=== PATIENT | male | born 1975 | race Two or more races ===

== ENCOUNTER 2018-08-23 06:15 | Inpatient (IN) | payer MEDICAID ==
[~2018-08-23] VITALS: Ht 172.7 cm; Wt 80.9 kg
[2018-08-23 06:22] VITALS: Ht 172.7 cm; Wt 80.9 kg
--- NOTE | 2018-08-23 06:34 | NUR ---
PT PRESENTS TO ED BIB AMBULANCE WITH C/O ABDOMINAL PAIN AND THROAT PAIN. PT STS THROAT AND ABDOMINAL PAIN OCCURRED YESTERDAY S/P PT HAD FAILED ATTEMPT AT PERITONEAL DIALYSIS CATHETER INSERTION AND WAS EXTUBATED. PER PT PROCEDURE OCCURED AT [facility]. PT BELIEVES PAIN WAS CAUSED BY THE PROCEDURES YESTERDAY. PT DENIES FEVER, N/V/D, OR SOB. PT HAS OLD SURGICAL SCARS ON ABDOMEN FROM APPENDECTOMY AND COMPLICATIONS FROM APPENDICITIS. PT SITTING UP ON GURNEY, RESP E/U, ON MONITOR, NO ACUTE DISTRESS NOTED AT THIS TIME.
--- NOTE | 2018-08-23 07:10 | NUR ---
REPORT RECEIVED FROM Herbie VAIL
[2018-08-23 07:19] LABS: ALBUMIN 3.6 g/dL (3.4-5.0); BILIRUBIN TOTAL 0.4 mg/dL (0.20-1.00); CARBON DIOXIDE 18.3 mmol/L (21-32); POTASSIUM SERUM 3.6 mmol/L (3.5-5.1); TOTAL PROTEIN, SERUM 7.6 g/dL (6.4-8.2)
[2018-08-23 07:24] LABS: CREATININE SERUM 18.1 mg/dL (0.7-1.3)
[2018-08-23 07:26] LABS: BASOPHIL % 0.7 % (0-2); PLATELET COUNT 150 x10^3mcL (130-400)
[2018-08-23 07:29] LABS: RED CELL DISTRIBUTION WIDTH 21.3 % (11.5-14.5)
--- NOTE | 2018-08-23 07:30 | NUR ---
PT SITTING UPRIGHT ON GURNEY. NAD NOTED. FAMILY AT BEDSIDE. REMAINS ON FULL MONITORS.
[2018-08-23 08:14] LABS: rbc morphology (normal/abnorm) ABNORMAL (NORMAL)
--- NOTE | 2018-08-23 09:08 | NUR ---
PT REPORTS DISCOMFORT TO NOSE AND THROAT AREA. DR LOU INFORMED OF SAME. NO NEW ORDERS AT THIS TIME
--- NOTE | 2018-08-23 09:15 | NUR ---
PT INFORMED OF ADMISSION BY ADMITTING MEDICAL TEAM AND RIZWAN AGUILAR
[2018-08-23] MEDS ORDERED: AMLODIPINE BES2.5 M1 (09:58)
--- NOTE | 2018-08-23 09:58 | NUR ---
REPORT GIVEN TO GREGORY
[2018-08-23 10:01] LABS: MAGNESIUM 2.5 mg/dL (1.8-2.4)
[2018-08-23 10:09] LABS: FREE T4 1.09 ng/dL (0.76-1.46); FREE THYROXINE INDEX 3.1 ug/dL (1.4-4.5); T4(THYROXINE) 8.9 ug/dL (4.7-13.3)
[2018-08-23 10:24] LABS: PHOSPHOROUS 9.5 mg/dL (2.5-4.9)
[2018-08-23 10:47] LABS: T3 TOTAL 0.98 ng/mL
--- NOTE | 2018-08-23 11:02 | NUR ---
RECEIVED PATIENT ALERT AND ORIENTED TIMES FOUR. PATIENT SEEN IN THE EMERGENCY ROOM FOR PAIN TO THE THROAT AND THE ABDOMEN. JOANN HAS RECENT SURGERY AT [facility] AND WAS ATTEMPTED DIALYSIS PORT PLACEMENT. THE PATIENT THOUGH HAD TOO MUCH SCAR TISSUE TO THE ABDOME FORM A PREVIOUS SUIRGERY FOR APPENDICITIS 20 YEARS AGO AND HAD AT THAT TIME AND OPEN LAP AND APPEAR HE HAS RETENTION SUTURES AND A LARGE INCISION AT THAT TIME. PATIENT IS FROM [facility] AND HAS BEEN OORKING IN AND PACKING AND DELIVERY SHOP AND HAD NOT BEEN WORKING FOR TWO MONTHS DUE TO THE RENAL FAILURE. PATIENT IS FOR A SHUNT TO THE ARM AT SOME POINT DU ETO THE INABILITY TO GET A PERITONEAL ACCESS. PATIENT AHS NOTE DLABS OF THE BUN AT 119.0/ CREATININE AT 18.1. ALSO NOTED THE BULL TAHS A H AND H OF 6.7/19. JOANN THALino HAS NOTED GALLSTONES PRESNET AND A LEFT WITH CORTICAL CYST. PATIENT ALSO HAS A LINEAR ATELECTASIS AT THE LUNG BASES. BULL TSTATES EH DOES NOT HAVE DIABETES BUT HTN WHICKH BROUGHT ON THE KIDNEY FAILURE. THE MOTHER HAS DM AND HTN. FATHER IS APPARENTLY HEALTHY. PATIENT HAS LOST WEIGHT AND HAS NOT BEE ABLE TO EAT MUCH AND LAST BM WAS ON SUNDAY. PATEINT HAS STILL BEEN ABLE TO URINATE BUT NOT MUCH. NO ACUTE EDEMA NOTED AND PATIENT HAS TRACE TO NONE AT THIS TIME TO THE LOWER EXTREMITES. VITALS ARE AT 97.1, 88, 20, 142/89, 97% IN THE ER AND AT 162/93, 18, 97%, 118 MAP AND 98.5 HER ON THE FLOOR. BULL TDOES NOT WANT VACINATION AND HAD SOME COLLEGE IN HIS COUN[place] OF TWO YEARS AND HAS BEEN WITH NO KNOWN ALLERGIES AND HAS WOUNDS TO THE ABODME FROM THE ATTEMPTED SURGERY PLACEMENT OF THE DIALYSIS PROT. TO THE RIGHT SIDE OF THE LATERAL LOWER ABDOMEN.
[2018-08-23 11:14] VITALS: BP 162/93
--- NOTE | 2018-08-23 13:15 | NUR ---
STARTED OM THE CONTRAST ORDERED AND NOW HAVING A ULTRASOUND OF THE ABODMEN. PATIENT HAS BEEN GIVEN PAIN MEDICAITON FOR PAIN TO THE ABDOMEN AND THROAT. WILL CONTINUE TO MONITOR .
--- NOTE | 2018-08-23 14:48 | NUR ---
DOWN FOR CT AT THIS TIME. PATIENT IS CALM AND THE MORPHIEN GIVEN WAS EFFECTIVE.
--- NOTE | 2018-08-23 14:57 | NUR ---
BACK FROM THE CT AND RESULTS PENDING. NEW ORDER FOR DIALYSIS CATH TO BE PLACED AND SUBSIQUENT ORDERS FOR DIALYSIS INDICATED. PATIENT REFUSED PAIN MEDICAITON WHEN OFFERED. WILL CONITNUE TO MONITOR.
--- NOTE | 2018-08-23 15:39 | NUR ---
TELE NEURO CONSULT INITIATED AT THIS TIME. SOC COMPUTER PLACED IN THE ROOM. ATTENDING NURSE GREGORY PUGA.
[2018-08-23 17:10] VITALS: BP 157/94
--- NOTE | 2018-08-23 17:30 | NUR ---
BLOOD IS READY AND RETREAVED BUT PATIEN TIS HAVING CATA PLACED AT THIS TIME. PATIENT HAS BEEN GIVEN ATIVAN 1 MG IVP AND IS TOLERATING FAIR. SEVERAL ATTTEMPT AND CATA WAS PLACED DALTON ERIGHT JUGULAR. SECURED AND CHEST XRAY PENDING. STARTED THE BLOOD AND RUNNING AT 150 AT THIS TIME. WILL ENDORSE TO THE NEXT SHIFT INDICATED. CONSENT PRINTED FOR HEMODIALYSIS AND SPOKE WIHT ALFARO ABOUT POSSIBLY DOING TONIGHT RECEIVED CALL FROM RADIOLOGY AND THE HIDA SCAN WILL NOT BE DONE TILL TOMORROW AND WILL ADVISE THE APPLICATION DEVELOPMENT SPECIALIST INDICATED.
--- NOTE | 2018-08-23 19:33 | NUR ---
BLOOD INFUSING A ARTURO WAS PLACED AND X RAY OF THE CHEST TAKEN. AWAITING RESULTS. PATIENT SLEEPY FROM THE ATIVAN AND COMPLAINS OF NASAL DRYNESS. APPLIED SOME KWY TO THE NARES AND ENDORSED TO THE ON COMING SHIFT.
--- NOTE | 2018-08-23 19:45 | NUR ---
PT RECIEVED FROM THE DAY SHIFT RN. PT IS DROWSY AND ALERT TO TOUCH AND VERBAL STIMULUS. PT HAS GARBLED SPEECH AT THIS TIME. PT IS INFUSING BLOOD AT THIS TIME. PT MOTHER IS AT THE BEDSIDE. RT MEL CATH WAS PLACED XRAY OF CHEST FOR PLACEMENT WAS TAKEN. AWAITING RESULTS AT THIS TIME.
[2018-08-23] MEDS ORDERED: HYT1 PO (19:50)
[2018-08-23] MEDS ORDERED: ALLOPURINOL100 MG PO (19:51)
[2018-08-23] MEDS ORDERED: NOR10 PO (19:51)
[2018-08-23] MEDS ORDERED: FERROUS SULFAT325 M2 PO (19:51)
--- NOTE | 2018-08-23 19:52 | NUR ---
MEDICATION LIST OPTAINED AND PLACED IN THE RECONSILITION PORTION OF THE CHART. ENDORSED THE MEDICATION TO THE FARM SUPERVISOR INDICATED.
[2018-08-23 20:35] VITALS: BP 138/88
--- NOTE | 2018-08-23 20:35 | NUR ---
PT BLOOD INFUSION COMPLETE. NO ADVERSE REACTIONS NOTED. NO SOB . NO CHEST PAIN. NO ELEVATED HR. BREATHING IS EQUAL AND UNLABORED. VITALS SIGNS ARE TEMP 99.2, HR 98, BP 138/88, RESP 18, SPO2 95%.
--- NOTE | 2018-08-23 21:16 | NUR ---
DIALYSIS NURSE IN THE ROOM AT THIS TIME. PER DIALYSIS NURSE REQUEST WILL HOLD FLAGYL UNTIL PATIENT HAS COMPLETED DIALYSIS. WILL HOLD ZOSYN WELL. WILL CONTINUE TO MONITOR AT THIS TIME.
[2018-08-23 21:27] VITALS: BP 147/87
--- NOTE | 2018-08-24 02:41 | NUR ---
PT IS RESTING IN BED WITH EYES CLOSED AT THIS TIME. NO ACUTE DISTRESS NOTED. NO SOB NOTED. MOTHER IS AT THE BEDSIDE. IV IS INFUSING AND IS INTACT. SAFETY AND COMFORT MEASURES MAINTAINED, BED IN LOWEST POSITION, CALL LIGHT WITHIN REACH. WILL CONTINUE TO MONITOR AT THIS TIME.
--- NOTE | 2018-08-24 05:30 | NUR ---
PT HAS SLEPT IN INTERMITTENT INTERVALS THROUGHOUT THE SHIFT. PT HAD HEMODIALYSIS 0 OUTPUT CLEAN ONLY. PT HAS FLAGYL AND ZOSYN INFUSING DURING THE SHIFT. NO ACUTE DISTRESS NOTED. PT IV IS INTACT AND INFUSING WELL. MOTHER IS AT THE BEDSIDE. HEMODIALYSIS SCHEDULED FOR THE AM SHIFT PENDING LABS. SAFETY AND COMFORT MEASURES MAINTAINED, BED IN LOWEST POSITION, CALL LIGHT WITHIN REACH. WILL ENDORSE CONTINUITY OF CARE TO THE ONCOMING RN.
[2018-08-24 06:14] VITALS: BP 146/93
[2018-08-24 07:03] LABS: BASOPHIL % 0.3 % (0-2); PLATELET COUNT 132 x10^3mcL (130-400)
[2018-08-24 07:07] LABS: CALCIUM 8.2 mg/dL (8.5-10.1); CARBON DIOXIDE 25.4 mmol/L (21-32); POTASSIUM SERUM 3.2 mmol/L (3.5-5.1)
[2018-08-24 07:08] LABS: CREATININE SERUM 11.1 mg/dL (0.7-1.3)
[2018-08-24 07:12] LABS: RED CELL DISTRIBUTION WIDTH 20.5 % (11.5-14.5)
[2018-08-24 07:55] LABS: rbc morphology (normal/abnorm) ABNORMAL (NORMAL)
--- NOTE | 2018-08-24 08:53 | NUR ---
PATIENT RECEIVED ALERT AND ORIENTED TIMES FOUR. PATIENT HAS BEEN DIALYSED LAST NIGHT AND DUE AGAIN FOR TODAY. PATIENT HAS A HIDA ORDERED BUT HAS NOT HAD YET AND WITH THE DIALYSIS WILL NEED TO FIGURE OUT WHEN THIS WILL BE SCHEDULED AROUND THE OTHER NEEDS OF DIALYSIS AND NOW BLOOD TRANSFUSION. PATIENT WITH DIMINISHED BREATH SOUNDS AND BOWEL SOUNDS HYPOACTIVE. PATIENT HAS DISTENDED ABDOMEN AND NOTED PREVIOUS ATTEMPT FOR DIALYSIS PERITONEAL ACCESS. PATIENT HAS BEEN OOB AND TOLERATED WELL IV INTACT AND THE CATA TO THE RIGHT NECK/CLAVICAL AREA INTACT. PATIENT HAS BEEN WITHOUT COMPLAINTS OF PAIN AT THIS TIME. SOME MILD TRACE EDEMA NOTED TO THE LOWER EXTREMITES. LABS ARE NOTED TO HAVE THE H AND H OF 7.4 AND 24 NOTED. PATIENT HAS BUN AND CREATININE AT 55.0/11. PATIENT HAS BEEN LETHARGIC POST THE ATIVAN LAST NIGHT BUT APPEARS ALERT THIS AM. WILL CONTINUE TO MONITOR INDICATED. MOTHER AT BEDSIDE AND WANTS TO GIVE THE PATIENT BP MEDICATION BUT REMINDED THAT THE PATIENT IS TO TAKE THE MEDICATION OFFERED HERE AT THE HOSPITAL NOW SO THE OTHER MEDICATIONS ARE ON HOLD FOR PHYSICIAN REVIEW TO SEE IF STILL APPROPRIATE. STAFF INTERPRETED FOR THE FAMILY AND PATIENT ON THE NEED FOR COMPLIANCE WITH THIS AND WILL CONTINUE TO EDUCATE AND UPDATE NEEDED. VITALS AT THIS TIME AT 146/93, 97, 97.4, 96%, 20.
[2018-08-24 09:56] VITALS: BP 141/89
--- NOTE | 2018-08-24 10:56 | NUR ---
SEVERAL CALLS BACK AND FORTH TO ARRANGE THE HIDA AND DIALYSIS SO THEY DO NOT INTERFER WITH EACH OTHER. THE TECH ADVISED THAT SHE CAN NOT GUARENTEED TO HAVE THE HIDA DONE IN LESS THAN FOUR HOURS AND THE SCAN SHE IS WORKING ON NOW AT ANOTHER HOSPITAL THE SAME THING. ADVISED THE CHEMICAL PREPARER THAT THE SCAN WILL BE DONE IN THE AM. SPOKE WITH MACO THE TECH AND SHE WILL BE HERE ABOUT 830AM AND NOT TO HAVE FOOD AND KEEP NPO AFTER MIDNIGHT AND TO NOT HAVE ANY NARCOTICS POST 4AM FOR THE TEST. BLOOD IS READY NOW AND WILL GIVE THE DIALYSIS NURSE WILL NOT BE DOING THE DIALYSIS TILL LATER TODAY.
--- NOTE | 2018-08-24 11:43 | NUR ---
STARTED THE UNIT OF BLOOD ORDERED. PATIENT IS SLEEPING AND HAD JUST HAD THE ECHO DONE. FAMILY AT BEDSIDE AND SUPPORTIVE WITH CARE.
[2018-08-24 12:53] VITALS: BP 138/91
--- NOTE | 2018-08-24 14:26 | NUR ---
CALLED THE MANAGER TECHNICAL SERVICES FOR ORDER FOR DIET BUT THE MANAGER TECHNICAL SERVICES DOES NOT WANT THE PATIENT TO HAVE FOOD. BLOOD INFUSED AND TOLERATED WELL THE LAST BP AT 98.8, 96, 164/93, 18, 96%. FAMILY AT BEDSIDE AND SUPPORTIVE WITH CARE. NO COMPLAINTS OF PAIN AT THIS TIME.
[2018-08-24 15:18] LABS: IRON 70 ug/dL (65-170)
[2018-08-24 15:42] LABS: TOTAL IRON BINDING CAPACITY 238 ug/dL (250-450)
[2018-08-24 17:17] VITALS: BP 137/90
--- NOTE | 2018-08-24 17:22 | NUR ---
INFORMED BY THE DIALYSIS NURSE NEED MEDICATION FOR THE DIALYSIS OF MANITOL ORDERED AND WILL GIVE TO THE NURSE TO GIVE INDICATED.
--- NOTE | 2018-08-24 19:06 | NUR ---
PATIENT VOMITING BILE COLORED LIQUID. GAVE ZOFRAN ORDERED. WILL CONTINUE TO MONITOR. UNABLE TO GIVE THE DOSING OF ZOSYN AND HAD GIVEN THE FLAGYL FIRST AND THE ZOSYN TO FOLLOW. DIALYSIS NOW STARTED AND WILL NEED TO HOLD TILL POST THE DIALYSIS.
--- NOTE | 2018-08-24 19:15 | NUR ---
PT RECIEVED FROM THE DAY SHIFT RN, PT IS CURRENTLY AWAKE AND ALERT AND UNDERGOING HEMODIALYSIS AT THIS TIME. MOTHER IS AT THE BEDSIDE. NO ACUTE DISTRESS NOTED, SAFETY AND COMFORT MEASURES MAINTAINED, BED IN LOWEST POSITION, CALL LIGHT WITHIN REACH. WILL CONTINUE TO MONITOR AT THIS TIME.
[2018-08-24 22:24] VITALS: BP 162/96
--- NOTE | 2018-08-24 23:40 | NUR ---
FLAGYL INFUSING AT THIS TIME. MOTHER IS AT THE BEDSIDE, PT IS SNORING AT THIS MOMENT AND NOTICED SHORT BURSTS OF APNEA. HOB ELEVATED TO 45 DEGREES. PT EASILY AROUSABLE. NO ACUTE DISTRESS NOTED. WILL CONTINUE TO MONITOR.
--- NOTE | 2018-08-25 00:45 | NUR ---
PT IS RESTING IN BED WITH EYES CLOSED AT THIS TIME. NO ACUTE DISTRESS NOTED. PT HAS SHORT EPISODES OF 15-20 SECONDS OF APNEA WHILE SLEEPING. HEAD OF THE BED HAS BEEN ELEVATED TO 45 DEGREES. SAFETY AND COMFORT MEASURES MAINTAINED, BED IN LOWEST POSITION, CALL LIGHT WITHIN REACH. IV IS INTACT AND INFUSING A TTHIS TIME. WILL CONTINUE TO MONITOR.
--- NOTE | 2018-08-25 02:02 | NUR ---
PT IS RESTING IN BED WITH EYES CLOSED AT THIS TIME. NO ACUTE DISTRESS NOTED. MOTHER IS AT THE BEDSIDE. SAFETY AND COMFORT MEASURES MAINTAINED, BED IN LOWEST POSITION, CALL LIGHT WITHIN REACH. WILL CONTINUE TO MONITOR AT THIS TIME.
--- NOTE | 2018-08-25 05:31 | NUR ---
PT HAS RESTED IN LONG INTERVALS THROUGHOUT THE SHIFT. NO ACUTE DISTRESS NOTED. PT HAS BEEN CALM AND COOPERATIVE WITH CARE. HD DONE TODAY NO OUTPUT TAKEN CLEAN ONLY. MOTHER AT THE BEDSIDE. PT HAS EPISODES OF SNORING AND APNEA WHILE SLEEPING. PT HAS 15-20 INTERVALS OF APNEA WHILE SLEEPING. PT EASILY AROUSABLE, HOB ELEVATED TO 45 DEGREES. PT INFUSED FLAGYL AND ZOSYN, NO SOB NOTED. SAFETY AND COMFORT MEASURES MAINTAINED, BED IN LOWEST POSITION, CALL LIGHT WITHIN REACH. WILL ENDORSE CONTINUITY OF CARE TO THE ONCOMING RN. WILL CONTINUE TO MONITOR AT THIS TIME.
[2018-08-25 05:48] VITALS: BP 141/91
--- NOTE | 2018-08-25 07:30 | NUR ---
RECEIVED PATIENT SITTING UP IN BED A/O X4, CLEAR SPEECH, NO NEURO DEFICITS NOTED. TELE # [address], DENIES CHEST PAIN. BREATHING EVEN UNLABBORED ON RA, DENIES SOB, NO DISTRESS NOTED, HOB ELEVATED. PATIENT DENIES ANY PAIN. IV TO LFA AND RFA INTACT AND PATENT. RIGHT IJ MEL CATH, DRESSING CDI. NPO STATUS MAINTAINED, SCHEDULED FOR HIDA SCAN THIS AM. PATIENT IS CALM WITH CARE. INSTRUTED TO CALL FOR ASSISTANCE IF NEEDED. FAMILY AT BEDSIDE. ALL NEEDS ATTENDED TO. SAFETY PRECAUTIONS MAINTAINED. WILL MONITOR.
--- NOTE | 2018-08-25 08:10 | NUR ---
PATIENT H/L AT THIS TIME. TAKEN DOWN TO NUCLEAR MED DEPT FOR HIDA SCAN VIA WHEELCHAIR. AFTER SCHOOL PROGRAM ASSISTANT MADE AWARE.
[2018-08-25 08:14] VITALS: BP 146/93
--- NOTE | 2018-08-25 09:30 | NUR ---
RECEIVED PATIENT BACK FROM NUCLEAR MED DEPT, ECDIS N NAVIGATION OPERATOR MADE AWARE. PATIENT SITTING UP IN BED, NO DISTRESS NOTED. FAMILY AT BEDSIDE. IV ABX RESUMED TO RFA. ALL NEEDS ATTENDED TO. SAFETY PRECAUTIONS IN PLACE. WILL MONITOR.
--- NOTE | 2018-08-25 10:28 | NUR ---
DR. WEN AT BEDSIDE TO SPEAK WITH AND ASSESS PATIENT. REVIEWED HIDA SCAN RESULTS WITH PATIENT: PER DR. WEN SURGERY IS NOT INDICATED AT THIS TIME SINCE PATIENT HAS NO PAIN AND GALLBLADDER IS FUNCTIONING WELL. PATIENT STATES HE IS HUNGRY AND HAS NOT ATE IN [address] WEN HE WILL ORDER A RENAL DIET FOR PATIENT. ALL QUESTIONS AND CONCERNS ADDRESSED. SAFETY PRECAUTIONS IN PLACE.
[2018-08-25 11:16] LABS: BASOPHIL % 0.4 % (0-2); PLATELET COUNT 142 x10^3mcL (130-400); RED CELL DISTRIBUTION WIDTH 19.3 % (11.5-14.5)
[2018-08-25 11:28] LABS: CALCIUM 8.3 mg/dL (8.5-10.1); CARBON DIOXIDE 24.7 mmol/L (21-32); POTASSIUM SERUM 3.5 mmol/L (3.5-5.1)
[2018-08-25 11:31] LABS: CREATININE SERUM 8.6 mg/dL (0.7-1.3)
[2018-08-25 12:00] VITALS: BP 148/95
--- NOTE | 2018-08-25 12:15 | NUR ---
PATIENT SITTING UP IN BED, NO DISTRESS NOTED, VISITOR AT BEDSIDE. PATIENT INFORMED THERE IS AN ORDER FOR A STOOL SAMPLE, SUPPLIES LEFT IN RESTROOM. PATIENT VERBALIZED UNDERSTANDING TO NOTIFY STAFF WHEN HE HAS A BM. ALL NEEDS ATTENDED TO. SAFETY PRECAUTIONS IN PLACE.
--- NOTE | 2018-08-25 15:20 | NUR ---
STOOL SAMPLE COLLECTED FOR STOOL OB. WILL SEND DOWN TO LAB. PATIENT SITTING UP IN BED, NO DISTRESS NOTED. VISITOR AT BEDSIDE. SAFETY PRECAUTIONS IN PLACE. WILL MONITOR.
--- NOTE | 2018-08-25 17:32 | NUR ---
TREASURE ALFARO (DIALYSIS NURSE) TO NOTIFY HER PATIENT HAS ORDERS FOR HEMODIALYSIS TOMORROW 08/26/18 AT 0700. WILL WAIT FOR CALL BACK.
[2018-08-25 17:43] VITALS: BP 145/96
--- NOTE | 2018-08-25 18:41 | NUR ---
SPOKE WITH ANGELINA AND NOTIFIED HER PATIENT HAS ORDERS FOR HEMODIALYSIS TOMORROW MORNING 08/26/18 0700.
--- NOTE | 2018-08-25 19:20 | NUR ---
REPORT GIVEN TO FABBY AGUILAR, ALL QUESTIONS AND CONCERNS ADDRESSED. ALL CARES ENDORSED.
--- NOTE | 2018-08-25 19:35 | NUR ---
RECEIVED PT AWAKE, ALERT AND ORIENTED TO PERSON, PLACE, TIME. NO ACUTE DISTRESS NOTED AT THIS TIME. PT DENIES ANY PAIN. TELE MONITOR IN PL, DENIES CHEST DISCOMFORT; ON RA, BREATHING E/U, DENIES SOB AT THIS TIME BUT REPORTS AT TIMES WILL FEEL SOB BUT RESP. TX HAVE BEEN HELPING. B/L BREATH SOUNDS TO LUNG BASES DIMINISHED. NO RESP. DISTRESS NOTED. HOB ELEVATED TO SEMIFOWLERS. PT UNDERGOES HD AND HAS RIJ MEL CATH IN PL. DRESSING IS C/D/I. NO IRRITATION, REDNESS OR SWELLING NOTED TO AREA. PT HAS X2 IV'S RFA AND LFA, BOTH SITES PATENT AND INTACT AT THIS TIME. NO SWELLING OR REDNESS NOTED TO AREA. PT HAS POST SX SITE NOTED TO R ABD WITH DERMABAND IN PL. NO REDNESS, DRAINAGED NOTED TO SITE. ALL SAFETY MEASURES MAINTAINED. CALL LIGHT IN REACH. GF AT BEDSIDE. WILL CONTINUE TO MONITOR.
[2018-08-25 20:43] VITALS: BP 144/86
--- NOTE | 2018-08-25 21:50 | NUR ---
PT GIVEN ZOFRAN FOR N/V; EMESIS BAG AT BEDSIDE. MINIMAL BLEEDING NOTED TO RIJ SITE FROM PRESSURE R/T TO VOMITING; PRESSURE APPLIED TO AREA AND INSTRUCTED PT TO NOTIFY IF THERE IS ANY ACTIVE BLEEDING FROM SITE; PT VERBALIZED UNDERSTANDING. WILL CONTINUE TO MONITOR.
--- NOTE | 2018-08-26 00:10 | NUR ---
PT RESTING WITH EYES CLOSED, EASILY AROUSABLE. NO C/O PAIN, NO N/V AT THIS TIME. NO ACTIVE BLEEDING FROM RIJ. GF REMAINS NEAR BEDSIDE. SAFETY MEASURES MAINTAINED. CALL LIGHT IN REACH. WILL CONTINUE TO MONITOR.
[2018-08-26 05:02] VITALS: BP 146/93
[2018-08-26 05:57] VITALS: BP 147/92
--- NOTE | 2018-08-26 06:14 | NUR ---
PT RESTED INTERMITTENTLY DURING THE NIGHT. NO ACUTE CHANGES IN CONDITION OR DISTRESS. PT DENIES PAIN, DENIES N/V AT THIS TIME. IV TO RFA/LFA PATENT AND INTACT. ALL SAFETY MEASURES MAINTAINED. GF REMAINED AT BEDSIDE DURING THE NIGHT. CALL LIGHT IN REACH. WILL CONTINUE TO MONITOR.
[2018-08-26 06:50] LABS: BASOPHIL % 0.1 % (0-2); CALCIUM 8.1 mg/dL (8.5-10.1); CARBON DIOXIDE 23.2 mmol/L (21-32); PLATELET COUNT 154 x10^3mcL (130-400); POTASSIUM SERUM 3.2 mmol/L (3.5-5.1)
[2018-08-26 07:10] LABS: CREATININE SERUM 10.1 mg/dL (0.7-1.3)
--- NOTE | 2018-08-26 08:32 | NUR ---
A+OX4, NO RESPRIATORY DISTRESS NOTED, DENIES PAIN, TELE 15, PULSES MODERATE AND EQUAL FRANCIA, TRACE EDEMA BLE, LUNG SOUNDS CTA, TOLERATING RA, BOWEL SOUNDS ACTIVE, RIJ MEL CATH, SITE BLOODY BUIT NO ACTIVE BLEEDING, VOIDING FREELY, GENERALIZED WEAKNESS, AMBUALTORY, SURGIVAL WOUND TO R ABD WITH DERMABOND TEJAS, CDI, IVS IN RFA AND LFA SALINE LOCKED, SITES WNL.
[2018-08-26 09:12] VITALS: BP 150/100
--- NOTE | 2018-08-26 09:45 | NUR ---
PT RESTING IN BED, NO RESPIRATORY DSITRESS NOTED, DENIES PAIN. PT TO HAVE DIALYSIS THIS AM. WILL GIVE ANTIBITOTIC AFTER DIALYSIS.
--- NOTE | 2018-08-26 10:07 | NUR ---
DR REIS NOTIFIED OF K 3.2. PER DR REIS, DIALYSIS NURSE TO BE NOTIFIED AND ORDERED TO INFUSE POTASSIUM DURING HEMODIALYSIS. DIALYSIS NURSE ANGELINA NOTIFIED.
[2018-08-26 13:31] VITALS: BP 145/101
--- NOTE | 2018-08-26 13:35 | NUR ---
PPD IN RFA CHECKED: NEGATIVE. RESULTS PLACED IN CHART.
--- NOTE | 2018-08-26 13:53 | NUR ---
PER DR REIS, PT TO HAVE TUNNEL CATH INSERTION AND AV FISTULA PLACMENT TOMORROW 08/27. PT TO BE NPO AFTER MIDNIGHT. WITNESSED PT SIGN CONSENT FORMS.
--- NOTE | 2018-08-26 14:32 | NUR ---
ANTIBIOTICS AND PROCRIT NOT GIVEN BECAUSE DIALYSIS HAS NOT BEEN DONE YET.
--- NOTE | 2018-08-26 15:11 | NUR ---
PT RESTING IN BED, NO RESPIRATORY DSITRESS NOTED,DENIES PAIN, FAMILY AT BEDSIDE. AWAITING DIALYSIS.
--- NOTE | 2018-08-26 16:19 | NUR ---
PT RESTING IN BED, APPEARS TO BE SLEEPING, NO RESPIRATORY DISTRESS NOTED, IN NO APAPRANT PAIN, FAMILY AT BEDSIDE.
--- NOTE | 2018-08-26 17:19 | NUR ---
DIALYSIS SCHEDULED FOR 0700 SO ANTIBIOTICS WERE NOT GIVEN. DIALYDIS NURSE ANGELINA CALLED @ APPROX 1000 AM AND STATED SHE WOULD BE HERE IN A COUPLE HOURS SO I CONT TO HOLD ANTIBIOTICS. DIALYSIS NURSE NOW HERE AND I AM UNABLE TO GIVEN 1700 AND 1800 ANTIBIOTICS. CHARGE NURSE AWARE.
[2018-08-26 17:21] VITALS: BP 147/97
--- NOTE | 2018-08-26 17:22 | NUR ---
PT STATES HE GETS NAUSEA DURING DIALYSIS AND REQUESTING NAUSEA MEDS. ZOFRAN IVP GIVEN. NO RESPRIATORY DSITRESS NOTED.
--- NOTE | 2018-08-26 18:15 | NUR ---
PER DIALYSIS NURSE, DR REIS ORDERED HEPARIN 5000 UNITS X2 TO BE GIVEN DURING DIALYSIS. ORDERED ENTERED.
--- NOTE | 2018-08-26 18:42 | NUR ---
PT COMPLAINING OF NAUSEA, DIALYSIS NURSE AT BEDSIDE PERFORMING HD. HEPARIN [id number] UNITS GIVEN TO DIALYSIS NURSE FOR HD ORDERED.
--- NOTE | 2018-08-26 19:00 | NUR ---
RECEIVED PT IN BED ASLEEP EASILY AROUSABLE WITH HD NURSE AT BEDSIDE.PT ONGOING HD.NOTICED RIJ MEL CATH PATENT AND INTACT.BREATHING EVEN AND UNLABORED. DENIES ANY PAIN AT THIS TIME.BED IN LOWEST POSITION,CALL LIGHT WITHIN REACH. WILL CONTINUE TO MONITOR.
[2018-08-26 20:45] VITALS: BP 140/108
--- NOTE | 2018-08-26 21:15 | NUR ---
PT FINISHED HD. 2L OUT. PT AAOX4. NO SOB NOTED. BP: 147/107,HR: 105, O2SAT 97% 2L NC. MEDICATED NORVASC ORDERED. WILL CONTINUE TO MONITOR.
--- NOTE | 2018-08-27 04:58 | NUR ---
PT AWAKE,ALERT. NO SOB NOTED. DENIES ANY PAIN AT THIS TIME. BED IN LOWEST POSITION,CALL LIGH WITHIN REACH. WILL CONTINUE TO MONITOR.
[2018-08-27 05:27] VITALS: BP 136/96
--- NOTE | 2018-08-27 07:31 | NUR ---
GIVEN REPORT TO DAY NURSE RAMOS FOR CONTINUITY OF CARE.
--- NOTE | 2018-08-27 07:40 | NUR ---
RECEIVED PT FROM BOARDING HOUSE COOK. PT AWAKE, ALERT A/OX4. DENIES HEADACHE AT THIS TIME. PT ON ROOM AIR AT THIS TIME, O2 SAT 97% LUNGS CTA, DIMINISHED AT THE BASES. PT ON TELE# 15, ST. NO CHEST PAIN NOTED AT THIS TIME. PERIPHERAL PULSES PALPABLE, NO EDEMA NOTED. PT REPORTS LOOSE STOOL, LAST BM 08/26/18. PT ON HEMODIALYSIS, HAD HD YESTERDAY WITH 2L OUT. PT AMBULATORY WITH GENERALIZED WEAKNESS. PT HAS SX WOUND TO ABDOMEN WITH DERMABOND C/D/I. PATIENT DENIES PAIN AT THIS TIME. IV ACCESS RFA 20G/LFA 20G C/D/I. PT HAS RIGHT IJ MEL CATH, SOME BLOODY DRAINAGE NOTED ON DRESSING. PT IS TO HAVE A NEW TUNNELED CATH/ AV FISTULA PLACED TODAY. PT NPO EXCEPT MEDS FOR THE PROCEDURE. SAFETY MEASURES IN PLACE. BED LOW AND LOCKED. CALL LIGHT WITHIN REACH
--- NOTE | 2018-08-27 08:25 | NUR ---
PT COMPLAINING OF GAS PAIN, WITH HICCUPS. ZOFRAN ADMINISTERED ORDERED PRN (SEE EMAR). EARLY CHILDHOOD EDUCATION WORKER CARLIN AWARE
[2018-08-27 08:55] VITALS: BP 131/97
[2018-08-27 09:00] VITALS: BP 127/97
--- NOTE | 2018-08-27 09:25 | NUR ---
LORNA REPORTS RELIEF AFTER ADMINISTRATION OF ZOFRAN. NEW ORDER FOR MYLICON CHEWS IF PT GAS RETURNS. PT INSTRUCTED TO CALL IF GAS RETURNS, VERBALIZED UNDERSTANDING.
--- NOTE | 2018-08-27 12:59 | NUR ---
SPOKE WITH DR. MARSH VASCULAR SURGEON. PT SURGERY IS GOING TO BE RESCHEDULED TO TOMORROW AT 9 AM. DISCUSSED WITH PT ALREADY. PER IF ALL IS WELL AFTER SURGERY, PT WILL BE ABLE TO GO HOME TOMORROW. PT TO BE NPO AFTER MIDNIGHT TONIGHT, OK TO EAT NOW.
[2018-08-27 13:35] VITALS: BP 127/97
--- NOTE | 2018-08-27 14:41 | NUR ---
PT RESTING IN BED, NO RESPIRATORY DSITRESS NOTED, DENIES PAIN, FAMILY AT BEDSIDE.
--- NOTE | 2018-08-27 15:34 | NUR ---
SPOKE TO ANGELINA FROM DIALYSIS CENTER AND SCHEDULED PT FOR DIALYSIS TOMORROW AND MADE HER AWARE OF 'S PT. MYRON RN ASSIGNED TO THIS PT MADE AWARE OF ABOVE.
[2018-08-27 16:30] VITALS: BP 139/98
--- NOTE | 2018-08-27 16:36 | NUR ---
PATIENT UP IN CHAIR AT BEDSIDE. OXYGEN REMOVED, PT WITH NO RESP DISTRESS. BREATHING EVEN AND UNLABORED. O2 SAT 97%. NO DISCOMFORT NOTED, PATIENT REPORTS BEING "SUPER GOOD". LINENS CHANGED FOR PT COMFORT. SAFETY MEASURES MAINTAINED.
--- NOTE | 2018-08-27 18:44 | NUR ---
PT STABLE AT THIS TIME. IV ON RIGHT ARM DC'D- INFILTRATED. IV ON LEFT ARM D/C'D, HARD TO FLUSH. NEW IV INSERTED ON JAJA 20G. C/D/I INFUSING WELL. ABX BEING ADMINISTERED AT THIS TIME. PT TOLERATED WELL. NO DICOMFORT NOTED AT THIS TIME. ALL NEEDS MET THROUGHOUT SHIFT. WILL CONTINUE TO MONITOR AND ENDORSE TO THE NIGHT NURSE
--- NOTE | 2018-08-27 19:00 | NUR ---
RECEIVED PT IN BED AAOX4.NO DISTRESS NOTED.DENIES ANY PAIN AT THIS TIME.IV SITE TO JAJA PATENT AND INTACT. NO C/O N&V NOTED.NOTICED GUTIERREZ MORAN.BED IN LOWEST POSIITON,CALL LIGHT WITHIN REACH. WILL CONTINUE TO MONITOR.
[2018-08-27 22:30] VITALS: BP 133/91
[2018-08-28] VITALS (7 sets, daily range): BP systolic 134–166; BP diastolic 89–101
--- NOTE | 2018-08-28 05:12 | NUR ---
PT AAOX4.JUST CAME FROM THE BATHROOM.NO DISTRESS NOTED.DENIES PAIN.NO N&V NOTED.BED IN LOWEST POSITION,CALL LIGHT WITHIN REACH. WILL CONTINUE TO MONITOR.
[2018-08-28 06:17] LABS: BASOPHIL % 0.2 % (0-2); PLATELET COUNT 172 x10^3mcL (130-400)
[2018-08-28 06:32] LABS: CALCIUM 9.1 mg/dL (8.5-10.1); POTASSIUM SERUM 3.8 mmol/L (3.5-5.1); RED CELL DISTRIBUTION WIDTH 18.9 % (11.5-14.5)
[2018-08-28 06:39] LABS: CREATININE SERUM 9.9 mg/dL (0.7-1.3)
--- NOTE | 2018-08-28 07:00 | NUR ---
RECEIVED REPORT FROM REMOTE OPERATIONS PRODUCER NURSE AT THIS TIME. PATIENT RESTING COMFORTABLY IN BED. NO APPARENT DISTRESS OR DISCOMFORT. NOTED. BREATHING EVEN AND UNLABORED. NO RESPIRATORY DISTRESS NOTED. PATIENT DENIES CHEST PAIN AT THIS TIME. IV PATENT AND INTACT. ALL QUESTIONS AND CONCERNS ADDRESSED. ALL NEEDS ATTENDED TO. WILL CONTINUE TO MONITOR
--- NOTE | 2018-08-28 07:26 | NUR ---
CARE ENDORSED TO DAY NURSE
--- NOTE | 2018-08-28 09:43 | NUR ---
MORNING MEDICATIONS HELD FOR PROCEDURE PLANNED THIS MORNING. PATIENT RESTING COMFORTABLY IN BED. NO APPARENT DISTRESS NOTED. ALL NEEDS ATTENDED TO. WILL CONTINUE TO MONITOR
--- NOTE | 2018-08-28 11:00 | NUR ---
GAVE REPORT TO OR NURSE SHAH AT THIS TIME. ALL QUESTIONS AND CONCERNS ADDRESSED. ALL NEEDS ATTENDED TO. WILL CONTINUE TO MONITOR
--- NOTE | 2018-08-28 11:23 | NUR ---
PATIENT DOWN FOR PROCEDURE AT THIS TIME.
--- NOTE | 2018-08-28 13:52 | NUR ---
Initial Nutrition Assessment Dx: Renal failure, anemia PMHx: HTN, renal failure PSHx: Open appendectomy Labs: (08/28) Na 140, K 3.8, BG 98, BUN 37H, Cr 9.9H, Ca 9.1, A1c 5, WBC 8.3, H/H 8.9L/26L Meds: Flagyl, Morphine, Mylicon, Nephro-Herminio, Norvasc, Phoslo, Procrit, Zosyn, Zofran Diet: NPO for permacath placement, previously on renal diet PO Intake: (08/27) B: 100% L: 100% D: 40% Ht: 68" (173 cm) Wt: 178# (80.9 kg) BMI: 27.1 (Overweight) IBW: 148# %IBW: 120% UBW: 170-180# Age: 42 y/o male Food Allergies: NKFA Skin: Old abdominal surgical scar with dressing Pj: 20 Edema: None GI: Last BM x 1 (08/28) HD output: (08/26) 2000 mL Per H&P, pt. admitted with abdominal pain x 1 day associated with focal epigastric pain, SOB, orthopnea, generalized weakness, sore throat, and trouble with his vision prior to admission. Pt. underwent dialysis catheter placement for PD, but was unsuccessful and was scheduled to have AV fistula placement on 09/05. Permacath placement for today 08/28 per bed huddle discussion. Abdominal US conducted on 08/23 with findings of cholelithiasis without evidence of acute cholecystitis per provided notes. Abdominal CT scan with oral contrast for comparison also conducted on 08/23 with findings that suggest non-obstruction ventral hernia and cholelithiasis per provider notes. Pt. endorses improved appetite without GI distress associated with diet order. Reports that he gets nauseated during HD sessions and loses appetite the following meal post HD. Problem with: No c/o N/V/D/C Problems with: Chewing: N Swallowing: N Current appetite: Fair to good Recent wt change: None %wt change: N/A Vitamin/Supplement use: None Special diet at home: Renal diet Physical activity: None Education: Notified pt. of Renal diet and associated restrictions. Emphasized the importance of avoiding high Na, K, and P foods for electrolyte balance. Advised pt. to ensure that he is consuming enough proteins such as chicken and fish for increased nutrient needs/losses from HD. Provided pt. with [facility] handout on renal diet. Pt. verbalized understanding. Estimated Nutritional Needs Based on ideal body weight 67.3 kg: Energy: 9667-6100 kcal/d (30-35 kcal/kg- HD maintenance) Protein: 80-94 g/d (1.2-1.4 g/kg)-HD maintenance and preservation of lean body mass Fluid: 6630-0130 ml/d (1 ml/kcal-fluid balance) or per doctor Nutrition Diagnosis 1. Increased nutrient needs r/t increased metabolic demands 2/2 chronic illness AEB pt. hx ESRD with needs for maintenance HD 3 x weekly. Intervention/RD recommendations 1. Continue renal diet as ordered and as tolerated. Add Nepro QD for increased need to add an additional 425 kcal and 20 g protein. Pt. on Nephro-Herminio at this time. 2. If PO intake <75% by following assessment, will consider increasing the frequency of Nepro. Monitor/Evaluate Goal: PO intake at least 75% of estimated needs Monitor: PO intake, renal labs, GI function, diet tolerance F/U in 3-5 days as moderate risk (08/31-09/02)
--- NOTE | 2018-08-28 14:26 | NUR ---
PATIENT BROUGHT BACK UP FROM OR. PENDING ETA OF DR MARSH. PATIENT TO BE KEPT NPO. PER OR NURSE SHAH PENDING PROCEDURE EITHER LATER TODAY 08/28/18 OR TOMORROW 08/29/18. ALL QUESTIONS AND CONCERNS ADDRESSED. ALL NEEDS ATTENDED TO. TELE MONITOR PLACED
--- NOTE | 2018-08-28 14:50 | NUR ---
PER OR NURSE ALYSSA MARSH TO DO PROCEDURE TODAY. DR REIS AWARE AND DIALYSIS SCHEDULED FOR AFTER PROCEDURE. ALL QUESTIONS AND CONCERNS ADDRESSED. ALL NEEDS ATTENDED TO. WILL CONTINUE TO MONITOR
--- NOTE | 2018-08-28 15:27 | NUR ---
PATIENT DOWN FOR PROCEDURE AT THIS TIME.
--- NOTE | 2018-08-28 19:17 | NUR ---
PATIENT DOWN FOR PROCEDURE AT THIS TIME. GAVE REPORT TO PACKER AND CARRY OUT NURSE. ALL NURSING CARE AND ANTIBITOICS ENDORSED TO PACKER AND CARRY OUT NURSE. ALL QUESTIONS AND CONCERNS ADDRESSED. ALL NEEDS ATTENDED TO
--- NOTE | 2018-08-28 19:20 | NUR ---
RECEIVED REPORT ON PT FROM DAYSHIFT NURSE, PT STILL IN OR FOR AV SHUNT INSERTION AND RT UPPER CHEST PERMACATH. WILL WAIT FOR PT RETURN. HD NURSE AT BEDSIDE PENDING PT RETURN.
--- NOTE | 2018-08-28 19:55 | NUR ---
RECIEVED REPORT FROM SURGERY, PT HAD LEFT ARM AV FISTULA INSERTION, RT UPPER CHEST PERMACATH INSERTION. PT LEFT ARM AV FISTULA SUTURED AND DERMABOND IN PLACE PER POST OP NURSE. PT RT UPPER CHEST CATH HAS BIOPATCH IN PLACE WITH TEGADERM. PER OR NURSE, PT HAS SOME SATURATION TO BIOPATCH, WILL ENSURE DSG REMAINS CDI. PT HAD MAC ANESTHESIA, 1L NS RECEIVED, AND EBL= 10CC. PT RECEIVED DILAUDID IVP IN POST OP. DROWSY BUT EASY TO AROUSE. VITAL ON PACU= BP= 177/97 (RLE), HR 86, TEMP= 98.4, 02= 97% RA, RR=16. WILL WAIT FOR PT RETURN.
--- NOTE | 2018-08-28 20:05 | NUR ---
RECEIVED PT BACK FROM SURGERY, PT HAS REMOVAL OF RIJ MEL CATH, CLOSED WITH SUTURES. RT UPPER CHEST PERMACATH INSERTED 08/28/18 BIOPATCH BLOODY, WILL CHANGE DSG. LEFT AV FISTULA INSERTED 08/28/18 CLOSED WITH SUTURES AND DERMABOND (CUSHION FILLER) CDI. PT AOX4, SLEEPY BUT AROUSABLE. RESP EVEN AND UNLABORED ON RA, DENIES SOB. IV SITE TO JAJA PATENT, NO REDNESS, SWELLING OR PAIN NOTED. ABD SOFT, ROUND, DENIES ABD PAIN. PT VOIDS STILL, DENIES DYSURIA. GENERALIZED WEAKNESS, AMB AT BASELINE. PT HAS OLD SURGICAL WOUND TO ABD, CDI. PT DENIES PAIN AT THIS TIME. HD NURSE AT BEDSIDE, WILL INITIATE HD. ALL COMFORT AND SAFETY MEASURES PROVIDED FOR, CALL LIGHT WITHIN REACH, BED IN LOWEST POSITION, WILL CONTINUE TO MONITOR.
--- NOTE | 2018-08-29 05:05 | NUR ---
PT RESTED IN INTERVALS DURING SHIFT, NO ACUTE CHNAGES OCCURRING OVERNIGHT. MEDICATED PT X2 WITH MORPHINE, REPORTS PAIN MANAGED WELL. PT HAS PAIN IN THE RT IJ OUINTON CATH REMOVAL SITE WELL THE AV FISTULA ON FRANK. BOTH SITES APPEARS FREE OF REDNESS, SWELLING OR DRAINAGE. PT TOLERATING ANTIBIOTICS WELL, ALL COMFORT AND SAFETY MEASURES PROVIDED FOR, CALL LIGHT WITHIN [facility], BED IN LOWEST POSITION, WILL CONTINUE TO MONITOR.
[2018-08-29 06:15] VITALS: BP 153/86
[2018-08-29 06:38] LABS: BASOPHIL % 0.4 % (0-2); PLATELET COUNT 175 x10^3mcL (130-400); RED CELL DISTRIBUTION WIDTH 19.2 % (11.5-14.5)
[2018-08-29 06:40] LABS: CALCIUM 8.7 mg/dL (8.5-10.1); CARBON DIOXIDE 24.2 mmol/L (21-32); POTASSIUM SERUM 4.1 mmol/L (3.5-5.1)
--- NOTE | 2018-08-29 07:20 | NUR ---
RECEIVED PT. IN BED A/A/O X3. NO SOB, NO N/V NOTED. PT. C/O PAIN TO PERMA CATH. SITE AT R UPPER CHEST. IV SITE NOTED TO R UPPER ARM. AV SHUNT NOTED TO L AC. PERMA CATH. NOTED TO R UPPER CHEST. BED IN LOW POS., CALL LIGHT WITHIN REACH. SIDE RAILS UP X3.
[2018-08-29 07:32] LABS: CREATININE SERUM 7.9 mg/dL (0.7-1.3)
[2018-08-29 09:13] VITALS: BP 161/103
[2018-08-29] MEDS ORDERED: PHOS PO (09:13)
[2018-08-29] MEDS ORDERED: NEPHRO-VITE VITA1 EA PO (09:13)
[2018-08-29] MEDS ORDERED: COLACE100 MG PO (09:13)
[2018-08-29 12:31] VITALS: BP 146/98
--- NOTE | 2018-08-29 16:00 | NUR ---
D/C HOME INSTRUCTIONS GIVEN TO PT. AND PT.'S COUSIN (MR. ALISA ANDUJAR) WHO HELPED TRANSLATE FOR THE DISCHARGE INSTRUCTIONS. BOTH PT. AND PT.'S COUSIN VERBALIZED UNDERSTANDING OF INSTRUCTIONS. IV H/L TO R UPPER ARM REMOVED. PRESCRIPTIONS GIVEN. PHOTOGRAPHS OF ABD. INCISIONS AND AV SHUNT SITE TO L AC TAKEN PRIOR TO DISCHARGE.
--- NOTE | 2018-08-29 16:47 | NUR ---
PT. IS BEING DISCHARGED IN STABLE CONDITION VIA WHEELCHAIR. ALL BELONGINGS SENT HOME WITH PT. UPON DISCHARGE.
== END 2018-08-29 16:48 | disposition home or self-care (01) | DRG 180 ==
LOC: ED 06:15 → DU 09:33
PROVIDERS: Emergency Medicine; Internal Medicine; Internal Medicine Nephrology; Surgery; ADMIT Family Medicine
PROC: 05HM33Z Insertion of Infusion Device into Right Internal Jugular Vein, Percutaneous Approach (ICD-10-PCS; 2018-08-23)
PROC: 5A1D70Z Performance of Urinary Filtration, Intermittent, Less than 6 Hours Per Day (ICD-10-PCS; 2018-08-23)
PROC: 5A1D70Z Performance of Urinary Filtration, Intermittent, Less than 6 Hours Per Day (ICD-10-PCS; 2018-08-24)
PROC: 5A1D70Z Performance of Urinary Filtration, Intermittent, Less than 6 Hours Per Day (ICD-10-PCS; 2018-08-26)
PROC: 02HV33Z Insertion of Infusion Device into Superior Vena Cava, Percutaneous Approach (ICD-10-PCS; 2018-08-28)
PROC: 5A1D70Z Performance of Urinary Filtration, Intermittent, Less than 6 Hours Per Day (ICD-10-PCS; 2018-08-28)
PROC: 031809D Bypass Left Brachial Artery to Upper Arm Vein with Autologous Venous Tissue, Open Approach (ICD-10-PCS; principal; 2018-08-28 11:30)
DX: I13.2 Hypertensive heart and chronic kidney disease with heart failure and with stage 5 chronic kidney disease, or end stage renal disease (principal); N17.0 Acute kidney failure with tubular necrosis; J96.01 Acute respiratory failure with hypoxia; I42.9 Cardiomyopathy, unspecified; E83.39 Other disorders of phosphorus metabolism; E83.41 Hypermagnesemia; E87.1 Hypo-osmolality and hyponatremia; E87.2 Acidosis; N18.6 End stage renal disease; I50.9 Heart failure, unspecified; D63.1 Anemia in chronic kidney disease; E87.6 Hypokalemia; K80.20 Calculus of gallbladder without cholecystitis without obstruction; Z99.2 Dependence on renal dialysis; Z68.26 Body mass index [BMI] 26.0-26.9, adult
CPT/HCPCS: 78226; 84439; 86580; A4301; A9537; J0885-EC; J1170; J1642; J1644; J2001; J2060; J2150; J2250; J2270; J2405; J2543; J2704; J3010; J3490; J7030; J7040; J7050; J7620; P9016; Q0092; Q9966